=== PATIENT | female | born 1980 | race Caucasian/White ===

== ENCOUNTER 2023-07-19 09:32 | Emergency (ER) | payer OTHER, SELFPAY ==
[2023-07-19 09:39] VITALS: BP 157/95
--- NOTE | 2023-07-19 10:23 | ED.GENMED ---
History of Present Illness
General
Chief Complaint: Musculo-Skeletal Complaint
Source: patient
Exam Limitations: none
Time Seen by Provider: 07/19/23 10:01
Nursing documentation reviewed up to this point in time: agreed with
Travel History
Have you had any contact with someone who has COVID-19?: No
Do you have any symptoms of coronavirus? Fever > 100 degrees, chills, cough, shortness of breath, sore throat, loss of taste or smell, muscle aches, or headache?: No
History of Present Illness
History of Present Illness:
pt is a 42 y/o F with h/o hypothyroid
here with righ tankle pain after missing 1 step down from a restaurant last night causing inversion of righ tankle
able to weight bear with pain
ice and motrin last night
today has iced it but stil lhas pain all around the ankle
no significant foot pain
minimal swelling
no knee or proximal pain
no other injuries.
Past History
Past History
ED Past Medical History: Hypothyroidism and Other (kidney stone)
ED Past Surgical History: Gynecological
Social History
Tobacco: Non-smoker
Personal:
Living: with family
Employment: Employed
Review of Systems
Review of Systems
Allergies reviewed?: Yes
All Other Systems: Not applicable
Phy Exam
Physical Exam
Physical Exam:
GENERAL: Alert , in no apparent distress, comfortable at rest
HEAD: NCAT
CV: 2+ DP PULSES B/L
NEUROLOGICAL: Alert and oriented, no focal neuro deficits, , 5/5 strength, sensation intact, ambulation slight limp right leg
SKIN: Warm and dry, no bruising, no wounds to foot/ankle
MUSCULOSKELETAL:very minimal sts at insertion point of the talofibular ligament site; mild bony tenderness b/l mall; no deformities; no foot tenderness
nv intact
knee and tib fib normal
PSYCH: Normal and appropriate interaction.
Course
Orders/Labs/Results
Orders:
Orders
07/19/23 09:43
CR Ankle - Right Min 3 Views * Urgent
Comment:
Reason For Exam: pain, injury
Vital Signs
Initial and Last Documented VS:
Initial Vital Signs
Temp Pulse Resp BP Pulse Ox
98.1 F 78 16 157/95 100
07/19/23 09:39 07/19/23 09:39 07/19/23 09:39 07/19/23 09:39 07/19/23 09:39
Last Documented Vital Signs
Temp Pulse Resp BP Pulse Ox
98.1 F 78 16 157/95 100
07/19/23 09:39 07/19/23 09:39 07/19/23 09:39 07/19/23 09:39 07/19/23 09:39
MDM/Problems Addressed
Differential Diagnosis Includes:
ankle sprain, fracture
MDM/Problems Addressed:
42 y/o F with R ankle injury after inversion off 1 step last night
able to partially weight bear
no significant swelling, mild tendenress at the insertion of the anterotalofibular ligament;
xray indep reviewed by me and neg
daniella wrap, air cast for ankle sprain
offered crutches but pt has them at home.
*Critical Care Note
Total Time (30-74mins, 75-104mins- exclusive of procedures): Not Applicable
ED Attending Note
-
Portions of this chart may have been created with voice recognition software.� Occasional wrong word or��sound alike� substitutions may have occurred due to the inherent limitations of voice recognition software.
Discharge Plan
Departure
Patient Disposition: Home (Routine Discharge)
Date of Disposition: 07/19/23
Time of Disposition: 10:38
Patient with high blood pressure during this ER visit?: Yes
Condition: Fair
Covid-19: Not Applicable
Discharge Problem:
Right ankle sprain
Instructions: Sprain (DC), BLOOD PRESSURE
Prescriptions:
No Action
prenat.vits,cyndie,cji-ilfk-ciywg [ Vitamin] 1 TAB tablet
1 tab PO DAILY
levothyroxine 100 MCG tablet
137.5 mcg PO DAILY AT 0700
ibuprofen 600 MG tablet
600 mg PO Q4HPRN PRN (Reason: moderate pain/cramps) Qty: 30 0RF
Referrals:
Hipolito Villa MD [Active] - Follow up in 2-3 days
Keenan Mercer MD [Family Provider] -
Activity Restrictions/Additional Instructions:
YOU HAD NO SIGNS OF FRACTURE ON YOUR XRAY
WEAR THE DANIELLA WRAP AND THE AIR CAST FOR A FEW DAYS WITH A WIDE SHOE TO HELP WITH STABILIZATION
MOTRIN EVERY 8 HOURS NEEDED
ICE AND ELEVATE
IF STILL BOTHERING YOU IN A FEW DAYS, YOU CAN FOLLOW UP WITH ORTHOPEDICS BUT ADVANCE YOUR ACTIVITY TOLERATED OTHERWISE
RETURN FOR ANY CONCERNS.
Interventions
Interventions:
*Risk Screen - Suicide Last Done: 07/19/23 10:20
*General Assessment Last Done: 07/19/23 10:20
*Neglect/Abuse Screening Last Done: 07/19/23 10:20
ED- Fall Risk Assessment Last Done: 07/19/23 10:20
*ED COVID-19 Vaccine History Last Done: 07/19/23 10:20
ED-Musculoskeletal Assessment Last Done: 07/19/23 10:20
== END 2023-07-19 11:00 | disposition home or self-care (01) ==
LOC: EMR 09:32
PROVIDERS: EMERGENCY PHYSICIAN Emergency Medicine; FAMILY PHYSICIAN Family Medicine
DX: S93.401A Sprain of unspecified ligament of right ankle, initial encounter (principal); X50.1XXA Overexertion from prolonged static or awkward postures, initial encounter; E03.9 Hypothyroidism, unspecified; Z87.442 Personal history of urinary calculi
CPT/HCPCS: 99283; 73610

== ENCOUNTER → 2023-12-28 10:35 | Outpatient (REF) | payer OTHER, SELFPAY | LOC: HWRAD 10:35 | PROVIDERS: ATTENDING PHYSICIAN Internal Medicine Endocrinology, Diabetes & Metabolism; FAMILY PHYSICIAN Family Medicine | DX: E03.9 Hypothyroidism, unspecified (principal) | CPT/HCPCS: 76536 ==

== ENCOUNTER → 2024-01-19 10:05 | Outpatient (REF) | payer OTHER, SELFPAY | LOC: WDC 10:05 | PROVIDERS: ATTENDING PHYSICIAN Specialist | DX: L76.34 Postprocedural seroma of skin and subcutaneous tissue following other procedure (principal); N63.31 Unspecified lump in axillary tail of the right breast | CPT/HCPCS: 76642; 77062; 77066 ==

== ENCOUNTER → 2024-01-27 09:25 | Outpatient (REF) | payer OTHER, SELFPAY ==
--- NOTE | 2024-01-27 15:08 | OID.BR.INTR ---
[facility] Breast Navigator - Initial
- -
Date of Contact: 01/27/24
Met with patient. Patient given written information on navigator services available at [facility]. Will follow up as needed per protocol.
== END ==
LOC: WDC 09:25
PROVIDERS: ATTENDING PHYSICIAN Specialist
DX: N63.31 Unspecified lump in axillary tail of the right breast (principal)
CPT/HCPCS: 88305; 19083; 88341; 88342